=== PATIENT | male | born 1945 | race Caucasian/White ===

== ENCOUNTER 2023-01-30 10:12 | Emergency (ER) | payer MEDICARE, OTHER, SELFPAY ==
--- NOTE | ~2023-01-30 | XR_ITS ---
XR chest 2V 01/30/2023 10:51 Indication: Productive cough for 2 1/2 weeks. Procedure: 2 view chest Comparison: No prior studies for comparison. Findings: There is bilateral lower lobe pneumonia. No significant effusion. Heart size normal. No jb ma or pneumothorax. Impression: 1: Bilateral lower lobe pneumonia. Reviewed, dictated and finalized at location B. 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
[2023-01-30 10:32] VITALS: BP 101/58; PULSE 93; RESP 14; TEMP 36.3; O2SAT 95
--- NOTE | 2023-01-30 11:27 | ED.URI ---
HPI - URI/Sore Throat General Chief Complaint: Upper Respiratory Infection Stated Complaint: Cough/Fatigue Time Seen by Provider: 01/30/23 11:21 Source: patient and RN notes reviewed Mode of arrival: ambulatory Limitations: no limitations History of Present Illness HPI Narrative: Patient presents today with a 2.5 week history of cough. He is also reporting some chest wall pain with deep breaths and shortness of breath with exertion. He has tried no medication for symptoms prior to arrival. History of pneumonia last year. No history of asthma or COPD. Related Data Home Medications Medication Instructions Recorded Confirmed aspirin 81 mg tablet,delayed mg 01/30/23 release (Adult Low Dose Aspirin) lisinopril 2.5 mg tablet mg 01/30/23 Allergies Allergy/AdvReac Type Severity Reaction Status Date / Time No Known Allergies Allergy Verified 01/30/23 10:30 Review of Systems Review of Systems: CONSTITUTIONAL: Denies body aches, fever, chills, or sweats. EYES: Denies visual changes, redness, or discharge. ENT: Denies rhinorrhea, congestion, sore throat, or otalgia. CARDIOVASCULAR: Denies chest pain, palpitations, or edema. RESPIRATORY: + cough, chest wall pain, shortness of breath with exertion GASTROINTESTINAL: Denies abdominal pain, nausea, vomiting, or diarrhea. GENITOURINARY: Denies dysuria or hematuria. SKIN: Denies rash, itching, or wounds. MUSCULOSKELETAL: Denies back pain, joint pain, or myalgia. NEUROLOGIC: Denies headache, numbness, tingling, or weakness. PSYCH: Denies depression or anxiety. PMFSH Comments At time of signature, I have reviewed and agree with nursing past medical, surgical, social and family history unless otherwise noted. Please see nursing chart for further information. There is no relevant family history pertinent to the presenting complaint Exam Narrative: GENERAL: Well-appearing, well-nourished, and in no acute distress. HEAD: Normocephalic, atraumatic. EYES: EOMI. No redness or drainage. Conjunctivae normal. ENT: Mucous membranes pink and moist. Nares clear. No rhinorrhea. TMs normal bilaterally. Throat normal. Uvula midline. NECK: Normal AROM. Supple. No lymphadenopathy. CHEST: No respiratory distress.Slight crackles in the bilateral bases, otherwise clear. HEART: Regular rate and rhythm. No murmur appreciated. EXTREMITIES: Normal range of motion. No edema. SKIN: Warm, dry, no rash. Capillary refill normal. Normal skin turgor. NEURO: No focal deficits. Alert and oriented x3. Gait steady. PSYCH: Normal affect. No signs of depression or anxiety. Course Course Level of Care: Express Care Visit Vital Signs Vital signs: Vital Signs Temperature 97.3 F L 01/30/23 10:32 Pulse Rate 93 01/30/23 10:32 Respiratory Rate 14 01/30/23 10:32 Blood Pressure 101/58 L 01/30/23 10:32 Pulse Oximetry 95 01/30/23 10:32 Oxygen Delivery Room Air 01/30/23 10:32 Temperature 97.3 F L 01/30/23 10:32 Pulse Rate 93 01/30/23 10:32 Respiratory Rate 14 01/30/23 10:32 Blood Pressure 101/58 L 01/30/23 10:32 Pulse Oximetry 95 01/30/23 10:32 Oxygen Delivery Room Air 01/30/23 10:32 Reviewed MDM - URI/Sore Throat MDM Narrative Medical decision making narrative: Testing negative. Chest x-ray shows bilateral lower lobe pneumonia. Will treat with Augmentin and azithromycin. Discussed [id number] treatment as well for symptoms. Anticipatory guidance given. Differential Diagnosis Differential diagnosis: Likely upper respiratory infection, bronchitis and other (Pneumonia) Lab Data Attestation: I reviewed the patient's lab results. Labs: Lab Results 01/30/23 Range/Units 10:30 POC SARS CoV-2 Ag Negative (Negative) Influenza A Screen Negative Reference Range: Negative Influenza B Screen Negative Reference
== END 2023-01-30 11:35 | disposition home or self-care (01) ==
PROVIDERS: Emergency Provider Nurse Practitioner
DX: J18.9 Pneumonia, unspecified organism (principal); Z79.82 Long term (current) use of aspirin; Z20.822 Contact with and (suspected) exposure to COVID-19
CPT/HCPCS: 71046; 87426; 87804; 99203; C9803; G0463

== ENCOUNTER 2023-06-17 08:19 | Outpatient (CLI) | payer MEDICARE, SELFPAY ==
[2023-06-17 09:22] LABS: Alanine Aminotransferase 15 U/L (6-50); Albumin Level 4.7 g/dL (3.5-5.1); Alkaline Phosphatase 41 U/L (38-126); Anion Gap 6 mmol/L (4-12); Aspartate Amino Transferase 18 U/L (17-59); Bilirubin,Total 1.2 mg/dL (0.2-1.3); Blood Urea Nitrogen 20 mg/dL (9-20); Calcium 9.8 mg/dL (8.4-10.2); Carbon Dioxide 30 mmol/L (22-30); Chloride 104 mmol/L (98-107); Cholesterol 175 mg/dL (0-200); Estimated Glomerular Filt Rate > 60; Glucose 105 mg/dL (65-110); HDL Direct 44 mg/dL; Potassium 4.6 mmol/L (3.4-5.0); Sodium 140 mmol/L (137-145); Triglycerides 99 mg/dL (<150)
[2023-06-17 09:29] LABS: Hematocrit 53.6 % (42.0-52.0); Hemoglobin 17.8 g/dL (14.0-18.0); Mean Corpuscular HGB Conc 33.2 g/dl (32-36); Mean Corpuscular Hemoglobin 31.5 pg (26-34); Mean Corpuscular Volume 94.9 fl (80-100); Mean Platelet Volume 9.1 fl (7.4-10.4); Platelet Count Result 191 k/mm3 (150-375); Red Blood Count 5.65 M/mm3 (4.6-6.20); Red Cell Distribution Width 12.6 % (11.5-14.5); White Blood Count 7.8 K/mm3 (4.5-10.0)
[2023-06-17 09:30] LABS: LDL Cholesterol Direct 114 mg/dL
[2023-06-17 09:48] LABS: Prostate Specific Antigen 14.5 ng/mL (< OR = 4.0)
== END 2023-06-17 08:20 | disposition home or self-care (01) ==
PROVIDERS: PCP Family Medicine; Visit Provider Family Medicine
DX: R97.20 Elevated prostate specific antigen [PSA] (principal); I10 Essential (primary) hypertension; Z76.89 Persons encountering health services in other specified circumstances; Z12.5 Encounter for screening for malignant neoplasm of prostate
CPT/HCPCS: 36415; 80053; 80061; 84153; 85027; G0103

== ENCOUNTER 2023-09-22 13:01 | Emergency (ER) | payer MEDICARE, OTHER, SELFPAY ==
--- NOTE | ~2023-09-22 | XR_ITS ---
EXAMINATION: XR chest 2V DATE: 09/22/2023 13:26 INDICATION: Cough and fever. TECHNIQUE: Frontal and lateral views of the chest were obtained. COMPARISON: Chest 2 views 01/30/2023 FINDINGS: There are airspace opacities in posterior segment right upper lobe, consistent with pneumon ia. No pleural effusion or pneumothorax. The heart size is normal. IMPRESSION: 1. Right upper lobe pneumonia. Reviewed, dictated and finalized at location A.
[2023-09-22 13:10] VITALS: BP 134/65; PULSE 95; RESP 16; TEMP 37.1; O2SAT 97
--- NOTE | 2023-09-22 13:18 | ED.URI ---
HPI - URI/Sore Throat General Chief Complaint: Upper Respiratory Infection Stated Complaint: Bodyaches/Weakness Source: patient, RN notes reviewed and old records reviewed Mode of arrival: ambulatory Limitations: no limitations History of Present Illness HPI Narrative: Patient presents with complaints of 4 days of generalized malaise, minimally productive cough, body aches. Reports fever of 100.1 yesterday. He has been taking Mucinex for his symptoms. He reports that he has had pneumonia 2 times in the past, reports this feels the same. He denies any shortness of breath or chest pain. Does report that it is painful to take a deep breath. States that he took a COVID test this morning, reports was negative. He denies other complaints at this time. He is in no distress Related Data Home Medications Medication Instructions Recorded Confirmed aspirin 81 mg tablet,delayed 81 mg PO DAILY 01/30/23 09/22/23 release (Adult Low Dose Aspirin) lisinopril 2.5 mg tablet 2.5 mg PO DAILY 01/30/23 09/22/23 Allergies Allergy/AdvReac Type Severity Reaction Status Date / Time No Known Allergies Allergy Verified 09/22/23 13:07 Review of Systems Review of Systems: All systems reviewed & are unremarkable except as noted in HPI and below Constitutional: Constitutional: Reports as per HPI, Reports chills, Reports fatigue, Reports fever(s) and Reports weakness ENT: Reports system reviewed and no additional complaints, except as documented Cardiovascular: Cardiovascular: Reports no additional cardiovascular complaints Respiratory: Respiratory: Reports as per HPI, Reports no additional respiratory complaints, Reports chest congestion, Reports cough, Denies dyspnea and Denies wheezing Gastrointestinal: Gastrointestinal: Reports no additional gastrointestinal complaints Musculoskeletal: Musculoskeletal: Reports no additional musculoskeletal complaints, Reports as per HPI and Reports myalgias PMF Past Medical History Medical History Hypertension Social History Social History Smoking status: Never smoker Second hand tobacco smoke exposure: No Alcohol intake: never Substance use: never Living arrangements: with family Occupation/Education: retired Gender identity (if verbalized by the patient): Male Sexual Orientation (if Verbalized by the Patient): Straight or Heterosexual Spiritual care concerns: No Comments At the time of my signature, I reviewed and agree with the nursing past medical, surgical, social, and family history. There is no relevant family history pertinent to the patient complaint. Exam Const: General: cooperative, no acute distress, alert and awake Orientation/consciousness: oriented to person, oriented to place and oriented to time HENMT: Head: normal to inspection Resp: Effort & Inspection: normal respiratory effort and able to speak in complete sentences Auscultation: clear to auscultation bilaterally, no crackles, no rales, no rhonchi and no wheezes Cardio: Palpation: normal PMI Rate: regular rate Rhythm: regular rhythm Heart sounds: S1 normal heart sound present and S2 normal heart sound present Neuro: General: oriented to person, oriented to place and oriented to time Cranial nerves: Yes CN's II-XII intact bilaterally Psych: Appearance: grossly normal Thought process: Normal thought process present Insight: Good insight present (Psych) Judgement: Good judgement present (Psych) Course Course Level of Care: Express Care Visit Vital Signs Vital signs: Vital Signs Temperature 98.8 F 09/22/23 13:10 Pulse Rate 95 09/22/23 13:10 Respiratory Rate 16 09/22/23 13:10 Blood Pressure 134/65 09/22/23 13:10 Pulse Oximetry 97 09/22/23 13:10 Oxygen Delivery Room Air 09/22/23 13:10 Temperature 98.8 F 09/22/23 13:10 Pulse Rate 95 09/22/23 13:10
== END 2023-09-22 14:10 | disposition home or self-care (01) ==
PROVIDERS: Emergency Provider Nurse Practitioner Family; PCP Family Medicine
DX: J18.1 Lobar pneumonia, unspecified organism (principal); I10 Essential (primary) hypertension
CPT/HCPCS: 71046; 99213; G0463

== ENCOUNTER 2024-06-15 09:29 | Outpatient (CLI) | payer MEDICARE, SELFPAY ==
[2024-06-15 10:07] LABS: Basophils Absolute Auto 0.1 K/mm3 (0.0-0.1); Basophils Percent Auto 0.6 % (0.2-1.2); Eosinophils Absolute Auto 0.2 K/mm3 (0-0.3); Eosinophils Percent Auto 2.6 % (0-4.4); Hematocrit 51.1 % (42.0-52.0); Hemoglobin 17.1 g/dL (14.0-18.0); Immature Granulocyte Absolute 0.02 K/mm3 (0.00-0.031); Immature Granulocyte Percent A 0.2 % (0-0.5); Lymphocytes Percent Auto 45.8 % (18.3-44.2); Mean Corpuscular HGB Conc 33.5 g/dl (32-36); Mean Corpuscular Hemoglobin 31.3 pg (26-34); Mean Corpuscular Volume 93.4 fl (80-100); Mean Platelet Volume 8.7 fl (7.4-10.4); Monocytes Absolute Auto 0.7 K/mm3 (0.1-0.6); Neutrophils Absolute Auto 3.6 K/mm3 (1.3-6.7); Neutrophils Percent Auto 42.8 % (45.5-73.1); Platelet Count Result 233 k/mm3 (150-375); Red Blood Count 5.47 M/mm3 (4.6-6.20); Red Cell Distribution Width 12.1 % (11.5-14.5); White Blood Count 8.5 K/mm3 (4.5-10.0)
[2024-06-15 10:19] LABS: Alanine Aminotransferase 16 U/L (6-50); Albumin Level 4.5 g/dL (3.5-5.1); Alkaline Phosphatase 45 U/L (38-126); Anion Gap 9 mmol/L (4-12); Aspartate Amino Transferase 20 U/L (17-59); Blood Urea Nitrogen 20 mg/dL (9-20); Calcium 9.4 mg/dL (8.4-10.2); Carbon Dioxide 27 mmol/L (22-30); Chloride 102 mmol/L (98-107); Cholesterol 196 mg/dL (0-200); Estimated Glomerular Filt Rate > 60; Glucose 101 mg/dL (65-110); HDL Direct 40 mg/dL; Magnesium 2.2 mg/dL (1.6-2.3); Potassium 4.4 mmol/L (3.4-5.0); Sodium 138 mmol/L (137-145); Triglycerides 82 mg/dL (<150)
--- OUTSIDE RECORDS SUMMARY | 2024-06-15 10:31 | XMS_ITS | Clinical Summary ---
Author Organization [facility] Address [address] [place] [address] Care Team Providers Care Clip And Hanger Attacher Name Role Phone Unavailable Primary Care Provider Unavailabl e Allergies No known active allergies Medications aspirin 81 mg enteric coated tablet Take 81 mg by mouth daily Active lisinopriL (PRINIVIL,ZESTRI L) 2.5 mg tablet Take 1 tablet by mouth once daily 90 tablet 06/26/2023 Active Active Problems Problem Noted Date Diagnosed Date Hypertension, essential 03/22/2019 Mixed hyperlipidemia 03/22/2019 Elevated PSA 03/22/2019 Benign prostatic hyperplasia with urinary freque ncy 03/22/2019 Resolved Problems Problem Noted Date Diagnosed Date Resolved Date BMI 26.0-26.9,adult 05/12/2019 05/26/19 21 Assessment & Plan (05/12/2019 2:12 PM CDT): BMI Follow-up includes: nutrition counseling, exercise counseling and education provided. Polycythemia 03/22/2019 07/14/2022 Immunizations Immunization Administration Dates Next Due Influenza LAIV (Nasal) 12/07/2021 Influenza, Quadrivalent, Hig h Dose, Preservative Free, Intrr 11/26/2020,10/17/2019 Influenza, Trivalent, High D ose, Split, Preservative Free, Intramuscular 12/07/2018,01/04/2018,12/17/2016,12/31 Influenza, Trivalent, IM (MDV) 12/24/2013 Influenza, Unspecified 11/29/2018,01/04/2018 Moderna SARS-CoV-2 Monovalen t Vaccination (12+ YRS) 04/17/2020,03/19/2020 Pneumococcal Conjugate PCV 13 08/11/2012 Pneumococcal Polysaccharide PPV23 03/24/2019 Td, adsorbed 01/26/1999 Surgical History Surgery Date Site/Laterality Comments CERVICAL FUSION Medical History Medical History Date Comments Hypertension, essential 03/22/2019 Mixed hyperlipidemia 03/22/2019 Elevated PSA 03/22/2019 Benign prostatic hyperplasia with urinary freque ncy 03/22/2019 Polycythemia 03/22/2019 Family History Medical History Relation Name Comments No Known Problems Father No Known Problems Mother Relation Name Status Comments Father Mother Social History Tobacco Use Types Packs/Day Years Used Date Smoking Tobacco: Never Smokeless Tobacco: Never Tobacco Cessation:Counseling Given: Not Answered Alcohol Use Standard Drinks/Week Comments Not Currently 0 (1 standard drink = 0.6 oz pur e alcohol) AUDIT-C Answer Date Recorded Frequency of Alcohol Consumption 2-4 times a thu03/24/2019 Average Number of Drinks Not on file 020 Frequency of Binge Drinking Not on file 02/25 PHQ-2 Answer Date Recorded PHQ-2 Total Score (If total score is 3 or more points, staff should administer the PHQ-9) 0 07/15/2022 Personal Safety Answer Date Recorded Getting School Help Needed Not on file 02/21 Sex and Gender Information Value Date Recorded Sex Assigned at Not on file 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 Gender Identity Not on file Sexual Orientation Not on file Obstetrics History Last Filed Vital Signs Vital Sign Reading Time Taken Comments Blood Pressure 100/60 07/15/2022 8:34 AM CDT Pulse 64 07/15/2022 8:34 AM CDT Temperature 36.1 C (97 F) 07/15/2022 8:34 AM CDT Respiratory Rate 16 05/12/2019 1:34 PM CDT Oxygen Saturation 95% 07/15/2022 8:34 AM CDT Inhaled Oxygen Concentration - - Weight 75.8 kg (167 lb) 07/15/2022 8:34 AM CDT Height 175.3 cm (5' 9 ) 07/15/2022 8:34 AM CDT Body Mass Index 24.66 07/15/2022 8:34 AM CDT Plan of Treatment Health Maintenance Due Date Last Done Comments Hepatitis B Screening 02/13/1963 Zoster Vaccine (1 of 2) 02/13/1994 DTaP/Tdap/Td Vaccine (1 - Tdap) 01/27/1999 9 Depression Screening 07/16/2023 07/15/2022, 05/27/2021, 05/25/2020, Additional history exists Fall Risk Assessment 07/16/2023 07/15/2022, 05/27/2021, 05/25/2020, Additional history exists Well Visit 65+ 07/16/2023 07/15/2022, 04/0 05/2021, 05/25/2020 Covid-19 Vaccine (2023-2 5 season) 2023 12/21/2020, 04/17/2020, 03/19/2020 Influenza Vaccine (#1) 2023 , 11/26/2020, 10/17/2019, Additional history exists Colon Cancer Screening-CT Colonography Discontinued 06/12/2014 Colon Cancer Screening-Colonoscopy Discontinued 06/12/2014 Colon Cancer Screening-DNA Stool Discontinued 06/13/19 Colon Cancer Screening-FIT Discontinued 06/12/2014 Colon Cancer Screening-FOBT Discontinued 06/12/2014 Colon Cancer Screening-Sigmoidoscopy Discontinued 06/12/2014 Colorectal Cancer Screening Discontinued Pneumococcal vaccine 65+ Completed 03/24/2019, 07/24 Procedures Procedure Name Priority Date/Time Associated Diagnosis Comments COLONOSCOPY Routine 06/12/2014 from Last 3 Months or Most Recently Relevant to Health Maintenance Results * COLONOSCOPY (06/12/2014) Colonoscopy Normal us Historical Provider HEALTH MAINTENANCE Edited Result - Final from Last 3 Months or Most Recently Relevant to Health Maintenance Insurance MEDICARE [employer] CLAIMS OFFICE Member Subscriber Plan / Payer (Ef fective 2019-Present) Name:Armando Hyde Relation to Subscriber:Self Name:Armando Hyde Payer ID:[id number] (NAIC) Type:MANAGED CARE OTHER Address: [address] [place] [address] [employer] CLAIMS OFFICE MEDICARE
--- OUTSIDE RECORDS SUMMARY | 2024-06-15 10:31 | XMS_ITS | Referral Summary ---
Author Organization [facility] Address [address] [place] [address] Care Team Providers Care High Raw Sugar Boiler Name Role Phone Unavailable Primary Care Provider [...] Pneumococcal Polysaccharide PPV23 03/24/2019 Td, adsorbed 01/26/1999 Social History Tobacco Use Types Packs/Day Years Used Date Smoking Tobacco: Never Smokeless Tobacco: Never Tobacco Cessation:Counseling Given: Not Answered Alcohol Use Standard Drinks/Week Comments Not Currently 0 (1 standard drink = 0.6 oz pur e alcohol) AUDIT-C Answer Date Recorded Frequency of Alcohol Consumption 2-4 times a mon 03/24/2019 Average Number of Drinks Not on file [...] on file 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 Gender Identity Not on file Sexual Orientation Not on file Last Filed Vital Signs Vital Sign Reading [...] 07/15/2022 8:34 AM CDT Plan of Treatment Not on file Procedures Procedure Name Priority Date/Time Associated Diagnosis Comments COLONOSCOPY Routine 06/12/2014 from Last 3 Months or Most Recently Relevant to Health Maintenance Results * COLONOSCOPY (06/12/2014) Colonoscopy Normal us Historical Provider HEALTH MAINTENANCE Edited Result - Final from Last 3 Months or Most Recently Relevant to Health Maintenance Insurance MEDICARE [id number] CLAIMS OFFICE [facility] [place] [address]
[2024-06-15 10:32] LABS: LDL Cholesterol Direct 118 mg/dL
--- OUTSIDE RECORDS SUMMARY | 2024-06-15 10:32 | XMS_ITS | Clinical Summary ---
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
[2024-06-15 10:34] LABS: Vitamin D 25 Hydroxy 48.9 ng/mL
[2024-06-15 10:47] LABS: Prostate Specific Antigen 17.5 ng/mL (< OR = 4.0)
[2024-06-18 18:03] LABS: Apolipoprotein B 109 mg/dL
== END 2024-06-15 09:30 | disposition home or self-care (01) ==
PROVIDERS: PCP Family Medicine; Visit Provider Family Medicine
DX: I10 Essential (primary) hypertension (principal); R97.20 Elevated prostate specific antigen [PSA]; Z79.899 Other long term (current) drug therapy; Z12.5 Encounter for screening for malignant neoplasm of prostate; Z76.89 Persons encountering health services in other specified circumstances
CPT/HCPCS: 36415; 80053; 80061; 82172; 82306; 82607; 83735; 84153; 85025